=== PATIENT | female | born 1990 | race Caucasian/White ===

== ENCOUNTER 2016-04-16 11:12 | Emergency (ER) | payer SELFPAY ==
[2016-04-16 11:28] VITALS: BP 119/70
--- NOTE | 2016-04-16 16:53 | ED ---
Laceration/Wound HPI - HPI Summary HPI Summary: 25yo female presents with left thumb laceration after peeling potatoes with a knife about 1-2 hours ago. Patient has up to date tetanus. She is right handed. She denies any current numbness, or tingling but stated that it was slightly numb when she initially cut her thumb. Denies anticoagulant use. - History of Current Complaint Stated Complaint: LT FINGER LAC Hx Last Menstrual Period: 01/22/16 Pain Intensity: 0 Pain Scale Used: 0-10 Numeric - Allergy/Home Medications Allergies/Adverse Reactions: Allergies Allergy/AdvReac Type Severity Reaction Status Date / Time No Known Allergies Allergy Verified 02/25/16 19:55 PMH/Surg Hx/FS Hx/Imm Hx Previously Healthy: Yes - Surgical History Surgery Procedure, Year, and Place: wisdom teeth 2010 Infectious Disease History: No Infectious Disease History: Denies: Hx Clostridium Difficile, Hx Hepatitis, Hx Human Immunodeficiency Virus (HIV), Hx of Known/Suspected MRSA, Hx Shingles, Hx Tuberculosis, Hx Known/ Suspected VRE, Hx Known/Suspected VRSA, History Other Infectious Disease, Traveled Outside the in Last 30 Days - Family History Known Family History: Positive: Other - Mother Hx of Migraines - Social History Alcohol Use: Occasionally Substance Use Type: Reports: None Smoking Status (MU): Light Every Day Tobacco Smoker Amount Used/How Often: 1/2ppd Review of Systems All Other Systems Reviewed And Are Negative: Yes Physical Exam - Summary Physical Exam Summary: GENERAL: Well appearing, No acute distress, well nourished. HEENT: Head atraumatic/normocephalic, EOMI/ROSANNA, conjunctiva clear NECK: Supple with normal range of motion during conversation. MUSCULOSKELETAL: Left 1st digit with laceration on glass side 1 1/2 cm linear 1mm deep with bleeding controlled with pressure. Spares the nail. n/v intact. Digit FROM. no bony tenderness. SKIN: Warm and dry, skin color reflects adequate perfusion. NEUROLOGICAL: Patient is alert and appropriate. Cranial nerves are grossly intact. PSYCHIATRIC: Appropriate affect. Vital Signs On Initial Exam: Initial Vitals Temp Pulse Resp BP Pulse Ox 98.9 F 95 14 119/70 100 04/16/16 11:26 04/16/16 11:26 04/16/16 11:26 04/16/16 11:04/16/16 11:26 Procedures - Laceration/Wound Repair 1 Location: upper extremity Description: Linear Anesthesia: Local, 1.0% Length, Depth and Shape: 1 1/2cm x 1mm linear Betadine Prep?: Yes - irrigated with saline Laceration/Wound Explored: clean Closure: Single Layer Suture Type: Nylon Number of Sutures: 4 Layer Closure?: No Sterile Dressing Applied?: Yes Diagnostics - Vital Signs Vital Signs Temp Pulse Resp BP Pulse Ox 04/16/16 11:26 98.9 F 95 14 119/70 100 - Laboratory Lab Statement: Any lab studies that have been ordered have been reviewed, and results considered in the medical decision making process. Laceration Repair Course/Dx - Course Assessment/Plan: 25yo female presents with left thumb laceration. Tetanus is up to date. Patient tolerated procedure well and wound was cleaned and repaired. Discussed wound care. Patient to return with signs of infections, problems or concerns. Patient voiced understanding and is happy with plan of care. - Clinical Impression Provider Diagnoses: FINGER LACERATION Discharge - Discharge Plan Condition: Good Disposition: HOME Patient Education Materials: Care For Your Stitches (ED), Finger Laceration (ED ) Forms: *Work Release Referrals: [facility] [Outside] - 2 Days No Primary Care Phys,NOPCP [Primary Care Provider] - Additional Instructions: Suture removal in 10-12 days. Watch for signs of infection (redness, swelling, or discharge). Please return with any problems, concerns or worsening symptoms.
== END 2016-04-16 12:42 | disposition home or self-care (01) ==
LOC: ED 11:12
DX: S61.012A Laceration without foreign body of left thumb without damage to nail, initial encounter (principal); W26.0XXA Contact with knife, initial encounter; Y93.G1 Activity, food preparation and clean up; Y92.9 Unspecified place or not applicable
CPT/HCPCS: 12001; 99281; 99282